=== PATIENT | female | born 1970 | race Caucasian/White ===

== ENCOUNTER 2021-08-05 18:47 | Observation (INO) ==
[2021-08-05 19:35] LABS: Hematocrit 35 % (35-47); Hemoglobin 12.1 g/dL (12.0-16.0); Mean Corpuscular HGB Conc 35 g/dL (31-36); Mean Corpuscular Hemoglobin 30 pg (27-31); Mean Corpuscular Volume 87 fL (80-97); Mean Platelet Volume 9.6 fL (7.4-10.4); Platelet Count 232 10^3/uL (150-450); Red Blood Count 4.02 10^6 /uL (3.70-4.87); Red Cell Distribution Width 13 % (10-15); White Blood Count 10.1 10^3/uL (3.5-10.8)
[2021-08-05 19:38] LABS: ABS Basophils 0.1 10^3/ul (0-0.2); ABS Eosinophils 0.1 10^3/ul (0-0.6); ABS Lymphocytes 1.5 10^3/ul (1.0-4.8); ABS Monocytes 0.8 10^3/ul (0-0.8); ABS Neutrophils 7.6 10^3/ul (1.5-7.7); Eosinophil % 1.4 %; Lymphocyte % 14.5 %
[2021-08-05 19:46] LABS: INR 1.04 (0.86-1.15)
[2021-08-05 19:56] LABS: Chloride 105 mmol/L (101-111); Potassium 3.7 mmol/L (3.5-5.0); Sodium 138 mmol/L (135-145)
[2021-08-05 19:57] LABS: ALT 20 U/L (7-52); AST 13 U/L (13-39); Albumin 4.3 g/dL (3.2-5.2); Albumin/Globulin Ratio 1.9 (1-3); Alkaline Phosphatase 34 U/L (35-149); Anion Gap 6 mmol/L (2-11); Blood Urea Nitrogen 9 mg/dL (6-24); CO2 Carbon Dioxide 27 mmol/L (22-32); Calcium 9.3 mg/dL (8.6-10.3); Globulin 2.3 g/dL (2-4); Glucose 96 mg/dL (70-100); Total Protein 6.6 g/dL (6.4-8.9); eGFR CKD-EPI 109.8 (>60)
[2021-08-05 20:01] LABS: High Sens Troponin Baseline < 3 pg/mL (<15)
[2021-08-05 20:51] LABS: High Sensitivity Troponin 1 Hr < 3 pg/mL (<15)
[2021-08-05] MEDS ORDERED: Morphine 4 MG/ML VIAL (1 ml) IV ONE (20:57)
[2021-08-05 21:37] LABS: C Reactive Protein 5.47 mg/L (<8.01)
[2021-08-05 23:00] LABS: Erythrocyte Sed Rate 20 mm/Hr (0-19)
[2021-08-06 05:42] LABS: ABS Basophils 0.1 10^3/ul (0-0.2); ABS Eosinophils 0.2 10^3/ul (0-0.6); ABS Lymphocytes 1.6 10^3/ul (1.0-4.8); ABS Monocytes 0.6 10^3/ul (0-0.8); ABS Neutrophils 3.9 10^3/ul (1.5-7.7); Eosinophil % 3.8 %; Hematocrit 34 % (35-47); Hemoglobin 11.8 g/dL (12.0-16.0); Lymphocyte % 24.6 %; Mean Corpuscular HGB Conc 35 g/dL (31-36); Mean Corpuscular Hemoglobin 30 pg (27-31); Mean Corpuscular Volume 88 fL (80-97); Mean Platelet Volume 9.6 fL (7.4-10.4); Platelet Count 215 10^3/uL (150-450); Red Blood Count 3.86 10^6 /uL (3.70-4.87); Red Cell Distribution Width 13 % (10-15); White Blood Count 6.4 10^3/uL (3.5-10.8)
[2021-08-06 06:20] LABS: Calcium 8.8 mg/dL (8.6-10.3); HDL Cholesterol 63.2 mg/dL; Potassium 3.8 mmol/L (3.5-5.0); eGFR CKD-EPI 111.6 (>60)
[2021-08-06 06:32] LABS: TSH Ultra Thyroid Stim Horm 2.68 mcIU/mL (0.34-5.60)
[2021-08-06 09:46] LABS: Magnesium 1.8 mg/dL (1.9-2.7)
[2021-08-06 16:25] VITALS: BP 110/59
== END 2021-08-06 16:25 | disposition home or self-care (01) ==
LOC: ED 18:47 → EDHOLD 18:47 → MEDTELE 08-06 00:36
PROVIDERS: ADMIT Internal Medicine; ATTEND Internal Medicine